=== PATIENT | female | born 1965 | race Caucasian/White ===

== ENCOUNTER 2016-09-22 07:20 | Outpatient (CLI) | payer BC ==
[~2016-09-22] VITALS: Ht 171.4 cm; Wt 109.1 kg
--- NOTE | ~2016-09-22 | HEMODYNAMI ---
PATIENT:FERNANDO LEON MEDICAL RECORD: [id number] : 63 LOCATION:[facility] ADMISSION DATE: 09/22/16 Generatedon:09/22/201610:19 Patient name: FERNANDO LEON Patient #: [id number] SSN: [id number] : 1965 Date of study: 09/22/2016 Page: Of Hemodynamic Procedure Report Patient Data Patient Demographics Procedure consent was obtained First Name: FERNANDO Gender: Female Last Name: CAROLYN : 1965 Patient #: [id number] Age: 51 year(s) Race: Unknown SSN: [id number] Additional ID: [id number] Contact details [address]: [address] [place] [address] State: [place] City: [place] Zip code: [address] Past Medical History Allergies Allergen Reaction Date Comments Reported Other allergy 09/22/2016 N Admission Admission Data Admission Date: 09/22/2016 Admission Time: 7:20 Arrival Date: 09/22/2016 Arrival Time: 0:00 Admit Source: Other Insurance Payor: Private health insurance Height (in.): 67 BSA: 2.19 (m2) Height (cm.): 170.18 BMI: 37.75 (kg/m2) Weight (lbs.): 241 Weight (kg.): 109.32 Lab Results Lab Result Date: 09/22/2016 Lab Result Time: 0:00 Biochemistry Name Units Result Min Max BUN mg/dl 12 --(-*--)-- 7 18 Creatinine mg/dl 0.9 --(-*--)-- 0.6 1.3 CBC Name Units Result Min Max Hemoglobin g/dl 11.2 *-(----)-- 13.5 17.5 Procedure Procedure Types Cath Procedure Diagnostic Procedure LHC LHC w/Coronaries Procedure Description Procedure Date Procedure Date: 09/22/2016 Procedure Start Time: 10:06 Procedure End Time: 10:13 Procedure Staff Name Function Walter Kahn MD Performing Physician Teresa Aguirre RT Scrub Annie Moreno RN Nurse Brian Noe RT Line Clearance Foreman Leonie Chow RT Monitor Procedure Data Cath Procedure Fluoroscopy Diagnostic fluoroscopy Total fluoroscopy Time: 1.1 time: 1.1 min min Diagnostic fluoroscopy Total fluoroscopy dose: 791 dose: 791 mGy mGy Contrast Material Contrast Material Type Amount (ml) Isovue 300 51 Entry Location Entry Primary Successful Side Size Upsize Upsize Entry Closure Marrufo ccessful Closure Location (Fr) 1 (Fr) 2 (Fr) Remarks Device Remarks Radial Right 6 Fr Mechanical TR band artery Short Compression Estimated blood loss: 10 ml Diagnostic catheters Device Type Used For End Catheter Placement Terumo 5Fr Miller 110cm Procedure catheter Procedure Medications Medication Administration Route Dosage Oxygen NC 2 l/min Heparin Flush Bag added to field 1 bags (1000units/500ml NS) Lidocaine 2% added to field 20 Radial Cocktail added to field 1 syringe (Verapomil 2mg/Nitro 400mcg/Heparin 1500units) Benadryl I.V. 50 mg Radial Cocktail I.A. 1 syringe (Verapomil 2mg/Nitro 400mcg/Heparin 1500units) Versed I.V. 2 mg Versed I.V. 1 mg Fentanyl I.V. 50 mcg Versed I.V. 1 mg Fentanyl I.V. 50 mcg Versed I.V. 1 mg Fentanyl I.V. 50 mcg Fentanyl I.V. 100 mcg Hemodynamics Rest BSA: 2.19 (m2) HGB: 11.2 (g/dl) O2 Consumption: Estimated: 197.04 (ml/min) O2 Co nsumption indexed: Estimated:89.97 (ml/min/m) Heart Rate: 51 (bpm) Snapshots Pre Cath Intra NCS Post Cath Vital Signs Time Heart Resp SPO2 NIBP (mmHg) Rhythm Pain Sedation Rate (ipm) (%) Status Level (bpm) 9:43:35 60 13 100 154/82(116) NSR 0 (11) 10(A) , No pain 9:47:57 67 14 100 145/84(123) NSR 0 (11) 10(A) , No pain 9:52:11 74 13 91 148/82(111) NSR 0 (11) 10(A) , No pain 9:56:29 66 12 97 138/79(112) NSR 0 (11) 10(A) , No pain 10:00:47 70 21 96 145/77(120) NSR 0 (11) 10(A) , No pain 10:05:06 75 29 98 128/68(97) NSR 0 (11) 10(A) , No pain 10:09:19 85 16 96 123/69(96) NSR 0 (11) 10(A) , No pain 10:18:08 85 15 97 135/76(106) NSR 0 (11) 10(A) , No pain Medications Time Medication Route Dose Verified Delivered Reason Notes Effectiveness by by 9:42:48 Oxygen NC 2 l/min Walter Annie Per Femi Moreno RN physician 9:43:24 Heparin Flush added 1 bags Walter Watson used for Bag to Femi Kahn MD procedure (1000units/500ml field NS) 9:43:30 Lidocaine 2% added 20ml Walter Watson used for to vial Femi Kahn MD procedure field 9:43:37 Radial Cocktail added 1 Walter Walter used for (Verapomil to syringe Femi Kahn MD procedure 2mg/Nitro field 400mcg/Heparin 1500units) 9:43:43 Benadryl I.V. 50 mg Walter Annie Per Femi Moreno RN physician 10:03:10 Versed I.V. 1 mg Walter Annie for sedation Femi Moreno RN 10:03:14 Fentanyl I.V. 50 mcg Walter Annie for sedation Femi Moreno RN 10:05:13 Fentanyl I.V. 50 mcg Walter Annie for sedation Femi Moreno RN 10:05:16 Versed I.V. 1 mg Walter Annie for sedation Femi Moreno RN 10:07:09 Radial Cocktail I.A. 1 Walter Walter for (Verapomil syringe Femi Kahn MD vasodilation 2mg/Nitro 400mcg/Heparin 1500units) 10:07:19 Versed I.V. 2 mg Walter Annie for sedation Femi Moreno RN 10:07:29 Fentanyl I.V. 100 mcg Walter Annie for sedation Femi Moreno RN 10:09:00 Versed I.V. 1 mg Walter Annie for sedation Femi Moreno RN 10:09:07 Fentanyl I.V. 50 mcg Walter Valencia for sedation Femi Moreno emt basic Log Time Note 9:28:18 Patient Height : 170.18 inches 9:28:24 Patient Weight : 109.32 lbs 9:28:24 Admit Source: Other 9:28:25 Insurance Payor : Private health insurance 9:28:33 Arrival Date: 09/22/2016 12:00:00 AM 9:29:41 Diagnostic Cath Status : Elective 9:30:50 Brian Noe RT(R) sent for patient. Start room use. 9:30:52 Time tracking: Regular hours 9:30:58 Plan of Care:Hemodynamics will remain stable., Cardiac rhythm will remain stable., Comfort level will be maintained., Respiratory function will remain adequate., Patient/ family verbilizes understanding of procedure., Procedure tolerated without complication., Recovers from procedure without complications.. 9:31:28 Patient received from Outpatients to [facility] 2 Alert and oriented. Tansferred to table in Supine position. 9:31:30 Warm blankets applied, and suzanne hugger turned on for patient comfort. 9:31:31 Correct patient and procedure confirmed by team. 9:31:34 Signed procedure consent form obtained from patient. 9:33:51 Lab Result : Hemoglobin 11.2 g/dl 9:33:51 Lab Result : Creatinine 0.9 mg/dl 9:33:51 Lab Result : BUN 12 mg/dl 9:34:18 H&P Date Dictated: 09/07/2016 Within 30 days and on chart., H&P Addendum completed by physician on day of procedure. (MUST COMPLETE FOR ALL OUTPATIENTS). 9:34:19 Pre-procedure instructions explained to patient. 9:34:21 Family in waiting room. 9:34:23 Patient NPO since Midnight. 9:34:38 Patient allergic to Other allergyPCN 9:36:38 Is the patient allergic to Iodine/contrast media? No. 9:37:59 Is patient on blood thinner?No 9:38:52 ACC The patient was administered the following blood thiners within the last 24 hours: None 9:38:54 Patient diabetic? No. 9:39:00 HCG/Urine : completed and on chart, negative 9:39:03 Previous problem with sedation/anesthesia? No ? 9:39:04 Snore? Yes 9:39:05 Sleep apnea? No 9:39:06 Deviated septum? No 9:39:07 Opens mouth fully? Yes 9:39:07 Sticks out tongue? Yes 9:39:09 Airway obstruction? No ? 9:39:11 Dentures? No ? 9:39:13 Pre procedure: right dorsailis pedis pulse 1+ Palpable, but thready & weak; easily obliterated 9:39:15 Modified Jason's test Ulnar < 7 seconds 9:39:17 Patient pain scale 0/10 ?. 9:39:32 IV patent on arrival in left forearm with 0.9% NaCl at O. 9:39:34 Lab results completed and on chart. 9:39:38 Right Radial & Right Groin area was prepped with chlora-prep and draped in sterile fashion 9:39:39 Alarms reviewed by R. N. 9:39:39 Sharps counted by scrub and verified by R.N. 9:39:43 Use device set Radial Dx 9:39:44 Tegaderm 4 x 4 opened to sterile field. 9:39:44 Acist Hand Control opened to sterile field. 9:39:45 Acist Manifold opened to sterile field. 9:39:46 Acist Syringe opened to sterile field. 9:39:46 Cardinal Cath Pack opened to sterile field. 9:39:47 Bag Decanter opened to sterile field. 9:42:23 ECG and BP/O2 sat monitors applied to patient. 9:42:24 Baseline sample Acquired. 9:42:24 Vital chart was started 9:42:30 Full Disclosure recording started 9:42:36 Rhythm: sinus rhythm 9:42:48 Oxygen 2 l/min NC was given by Annie Moreno RN; Per physician; 9:43:24 Heparin Flush Bag (1000units/500ml NS) 1 bags added to field was given by Walter Kahn MD; used for procedure; 9:43:30 Lidocaine 2% 20ml vial added to field was given by Walter Kahn MD; used for procedure; 9:43:37 Radial Cocktail (Verapomil 2mg/Nitro 400mcg/Heparin 1500units) 1 syringe added to field was given by Walter Kahn MD; used for procedure; 9:43:43 Benadryl 50 mg I.V. was given by Annie Moreno RN; Per physician; 9:50:03 Physician paged 9:50:06 Zero performed for pressure channel P1 10:03:04 Physician arrived 10:03:05 --------ALL STOP TIME OUT------ 10:03:10 Versed 1 mg I.V. was given by Annie Moreno RN; for sedation; 10:03:14 Fentanyl 50 mcg I.V. was given by Annie Moreno RN; for sedation; 10:05:13 Fentanyl 50 mcg I.V. was given by Annie Moreno RN; for sedation; 10:05:16 Versed 1 mg I.V. was given by Annie Moreno RN; for sedation; 10:06:05 Final Timeout: patient, procedure, and site verified with staff and physician. All members of the team are in agreement. 10:06:08 Right Radial & Right Groin site verified by team. 10:06:12 Physical assessment completed. ASA score P 2 - A patient with mild systemic disease as per Walter Kahn MD. 10:06:17 Sedation plan: IV Moderate Sedation Versed, Fentanyl 10:06:26 Procedure started. 10:06:32 Local anesthetic to right radial artery with Lidocaine 2% by Walter Kahn MD.INITIAL ACCESS ONLY 10:07:09 Radial Cocktail (Verapomil 2mg/Nitro 400mcg/Heparin 1500units) 1 syringe I.A. was given by Walter Kahn MD; for vasodilation; 10:07:11 A 6 Fr Short sheath was inserted into the Right Radial artery 10:07:19 Versed 2 mg I.V. was given by Annie Moreno RN; for sedation; 10:07:29 Fentanyl 100 mcg I.V. was given by Annie Moreno RN; for sedation; 10:07:34 A Terumo 5Fr Miller 110cm catheter was advanced over the wire and used for Procedure. 10:07:36 Terumo 6Fr Slender Glidesheath opened to sterile field. 10:07:37 [facility] David 260cm J .035 wire opened to sterile field. 10:08:25 LV gram done using GREENE 10:08:33 EF : 55 % 10:08:39 LCA angiography performed. 10:09:00 Versed 1 mg I.V. was given by Annie Moreno RN; for sedation; 10:09:07 Fentanyl 50 mcg I.V. was given by Annie Moreno RN; for sedation; 10:09:30 RCA angiography performed. 10:09:36 Catheter removed. 10:09:46 Terumo TR Band Standard opened to sterile field. 10:10:11 Sheath removed intact; hemostasis achieved with Mechanical Compression to the Right Radial artery. 10:10:17 Procedure ended.(Physican Out) 10:10:27 Fluoroscopy time 01.10 minutes. 10:10:33 Fluoroscopy dose: 791 mGy 10:10:33 Flurop Dose total: 791 10:10:39 Contrast amount:Isovue 300 51ml. 10:10:43 Sharps counted by scrub and verified by R.N. 10:10:52 TR band inflated with 10cc of air. 10:10:54 Insertion/operative site no bleeding no hematoma. 10:10:59 Post Procedure Pulses reassessed and unchanged 10:11:05 Post-procedure physical assessment completed. ASA score P 2 - A patient with mild systemic disease as per Walter Kahn MD. 10:11:09 Post procedure rhythm: unchanged. 10:11:12 Estimated blood loss: 10 ml 10:11:17 Post procedure instruction explained to patient.Patient verbalizes understanding. 10:11:26 Procedure and supply charges have been captured, reviewed, submitted and are correct. 10:12:08 Vital chart was stopped 10:12:09 See physician's report for complete and final results. 10:12:12 Report given to Outpatients. 10:12:16 Patient transfered to Post Procedure Room with Stretcher. 10:13:21 Procedure ended. 10:13:21 Full Disclosure recording stopped 10:13:35 End room use (Document Last) Device Usage Item Name Manufacture Quantity Catalog Hospital Part Current Minimal Lot# / Number Charge Number Stock Stock Serial# Code Tegaderm 4 1 [id number] [id number] [id number] 5 x 4 Acist Hand Acist 1 52144 [id number] 360755 376323 5 [employer] Acist Acist 1 74530 141111 638934 894201 5 Manifold [employer] Acist Acist 1 73584 176708 659253 909057 20 Syringe [employer] Cardinal Cardinal 1 [id number] 859341 72426 [id number] 5 Cath Pack Health Bag Microtek 1 2002S 946102 26562 409220 5 [employer] Terumo 5Fr Terumo 1 40-8029 751768 366390 717631 5 Miller 110cm catheter Terumo 6Fr Terumo 1 [id number] 298509 942024 888335 [address] [facility] 1 [id number] 257667 062098 865604 30 260cm J .035 wire Terumo TR Terumo 1 [id number] 409604 284112 925731 40 Band Standard Signature Audit [place] Stage Time Signature Unsigned Intra-Procedure 09/22/2016 Leonie Chow 10:19:46 AM RT(R) Signatures Monitor : Leonie Chow Signature : RT Date : Time : [facility] [address] [place] [address]
[2016-09-22 08:04] LABS: ANION GAP 10.3 mmol/L (8-16); CALCIUM 8.4 mg/dL (8.5-10.1); CARBON DIOXIDE 27.5 mmol/L (21.0-32.0); CREATININE - SERUM 0.9 mg/dL (0.6-1.3); POTASSIUM - SERUM 3.8 mmol/L (3.5-5.1)
[2016-09-22 08:26] LABS: BASOPHILS 0.7 % (0.0-2.0); HEMATOCRIT 35.6 % (36.0-48.0); HEMOGLOBIN 11.2 g/dL (12-16); IMMATURE GRANULOCYTES 0.2 % (0-5); LYMPHOCYTES 27.9 % (15-50); MCH 26.2 pg (26.0-34.0); MCHC 31.5 g/dL (31.0-37.0); MCV 83.4 fL (80.0-100.0); MEAN PLATELET VOLUME 11.3 fL (7.4-10.4); MONOCYTES 8.3 % (2-11); NEUTROPHILS 57.9 % (40-80); PLATELET COUNT 289 10x3/uL (130-400); RBC 4.27 10x6/uL (4.00-5.40); WBC 5.8 10x3/uL (4.8-10.8)
[2016-09-22] MEDS ORDERED: ZYRTEC-D T1 TAB.SR . PO (08:34)
[2016-09-22 08:35] VITALS: BP 141/74; Ht 171.4 cm; Wt 109.1 kg
--- NOTE | 2016-09-22 08:58 | NUR ---
CALLED LAB TO ADD SERUM PREGNANY UNABLE TO URINATE. CALLED TRUE TO ADD TO LAB ALREADY DRAWN. RT THIGH SKIN CANCER SITE THAT WAS BURNED APPIED BANDAID.
[2016-09-22 09:06] LABS: HCG SERUM NEGATIVE (NEGATIVE)
--- NOTE | 2016-09-22 10:46 | NUR ---
VSS WITH CHEST PAIN DENIED. TR BAND TO R/WRIST CDI NO BLEEDING NO HEMATOMA NOTED. INSTRUCTED PATIENT TO KEEP RUE STRAIGHT NO BENDING OR FLEXING OF WRIST
--- NOTE | 2016-09-22 11:20 | NUR ---
SITTING WITH HOB UP 30 DEGREES TALKING TO FAMILY. VSS WITH TR BAND TO R/WRIST CDI NO BLEEDING NO HEMATOMA NOTED WILL MONITOR
--- NOTE | 2016-09-22 11:57 | NUR ---
PIV REMOVED FROM LEFT ARM WITH DRESSING APPLIED. VSS WITH CHEST PAIN DENIED 4 CC AIR REMOVED FROM TR BAND WITH NO BLEEDING NO HEMATOMA NOTED. PATIENT UP TO GET DRESSED FOR DISCHARGE HOME FAMILY AT SIDE
--- NOTE | 2016-09-22 12:14 | NUR ---
TR BAND REMOVED FROM R WRIST, TEGADERM APPLIED. NO BLEEDING OR HEMATOMA NOTED. D/C INSTRUCTIONS DISCUSSED WITH PATIENT AND FAMILY AT BEDSIDE. WHEELED DOWN VIA WHEELCHAIR.
--- NOTE | 2016-09-28 13:59 | OP ---
PATIENT NAME: FERNANDO LEON MEDICAL RECORD: [id number] :63 LOCATION:[facility] ADMISSION DATE: SURGEON: RUFINO ALLRED MD DATE OF OPERATION: 09/22/2016 PROCEDURES: 1. Left heart catheterization. 2. Selective coronary angiography. 3. Left ventriculogram. INDICATION: Chest pain compatible with angina. PROCEDURE IN DETAIL: After informed consent was obtained and after detailed explanation of risks, benefits as well as alternative therapies, the patient elected to proceed with angiogram and heart catheterization. The right radial area was prepped and draped in normal sterile fashion. The right radial artery was cannulated via modified Seldinger technique with placement of 5-[place] sheath. All catheters exchanged through this sheath. FINDINGS: Left ventriculogram was performed in standard 30-degree GREENE view, reveals good cardiac wall motion throughout all segments. Overall ejection fraction estimated at 60%. SELECTIVE CORONARY ANGIOGRAPHY: Left main, left anterior descending, left circumflex, and right coronary artery are all smooth-walled vessels with no angiographic evidence of coronary artery disease. OVERALL IMPRESSION: 1. No angiographic evidence of coronary artery disease. 2. Normal left heart pressures. 3. Normal left ventricular systolic function. Chest pain is noncardiac in etiology. No further cardiac workup needs to be ascertained. TRANSINT:[id number] Voice Confirmation ID: [id number] DOCUMENT ID: [id number] RUFINO ALLRED MD at 1359 CC: [id number] DICTATION DATE: 09/27/16 1244 COLLECTIONS CLERK: 09/27/16 1348 DEP CLI 09/22/16 [place] [id number]
== END 2016-09-22 12:16 | disposition home or self-care (01) ==
LOC: D.CATH 07:20
PROVIDERS: Internal Medicine Interventional Cardiology
DX: I20.9 Angina pectoris, unspecified (principal)

== ENCOUNTER → 2017-05-17 16:50 | Outpatient (CLI) | payer BC ==
[2016-09-22 08:35] VITALS: BMI 37.1
[~2017-05-17 16:50] MED LIST: ZYRTEC-D T1 TAB.SR . PO
== END | disposition home or self-care (01) ==
LOC: D.MAMMO 15:45
DX: Z12.31 Encounter for screening mammogram for malignant neoplasm of breast (principal)